=== PATIENT | female | born 1960 | race Caucasian/White ===

== ENCOUNTER 2017-01-09 15:36 | Emergency (ER) | payer OTHER ==
--- NOTE | 2017-01-09 16:06 | ED Physician Documentation ---
Female Urogenital Problems - HISTORIAN Historian: patient - HPI Chief Complaint: Female Urogenital Problems Onset: other (3 1/2 weeks ago) Severity: moderate Further Comments: yes (Started to have some lower back pain about 3 1/2 weeks, having some hot spells. No hematuria frequency, dysuria or urgency. Was seen and started Cipro but did not seem to help. Was seen again and started on Bactrim, has some improvement for 2 days. Now symptoms are about the same and is no better. Has a history of UTI and kidney stones. Liptotripty was done.) - Vaginal Bleeding Care: No Sexual History: active - ROS CONST: none, fever (??). denies: chills GI/: other (crohn's disease). denies: nausea, vomiting CVS/RESP: none - PAST HX Past History: none, other (history of kidney stones, Crohn's disease) Other History: kidney stone(s), bladder infection Surgeries/Procedures: hysterectomy, other (partial colectomy,) Allergies/Adverse Reactions: Allergies Allergy/AdvReac Type Severity Reaction Status Date / Time codeine Allergy Rash Verified 01/09/17 15:56 Home Medications: Ambulatory Orders Medication Instructions Recorded Hydrocodone/Acetaminophen [[place] 1 tab PO Q4H PRN 01/09/17 5-325 Tablet] Trazodone HCl [Trazodone HCl] 50 mg PO HS 01/09/17 - SOCIAL HX Smoking History: non-smoker Alcohol Use: none Drug Use: none - FAMILY HX Family History: kidney stones (father) - REVIEWED ASSESSMENTS Nursing Assessment Reviewed: Yes Vitals Reviewed: Yes ED Results Lab/Radiology - Radiology Radiology Impressions: Examination: CT Abdomen/pelvis History: Abdominal discomfort Comparison exams: None available Technique: CT Abdomen/pelvis without contrast protocol. Findings: Liver, spleen, adrenal glands, pancreas and gallbladder are without irregularity. No gallstone. Kidneys are symmetric in size. Calyceal calcifications bilaterally. Ureters to not appear to be dilated and the course of the abdomen and pelvis. Abdominal aorta with mild peripheral atherosclerotic disease. No abnormal dilation. Pelvic phleboliths. Bowel without contrast limiting evaluation. No evidence for acute mesenteric inflammation or free air. Stool throughout the large bowel limiting sensitivity. Sigmoid diverticula. No adjacent inflammatory changes. Surgical clips in the region of the appendix. Osseous structures demonstrate degenerative changes. Lung bases demonstrate mild scarring and atelectasis. Impression: Bilateral nephrolithiasis. No evidence for ureterolithiasis. No abnormal bowel dilation. Sigmoid diverticulosis. No evidence for acute diverticulitis. Electronically signed on Jan 09, 2017 5:08:05 PM CDT by: Rafael Quintana Female Urogenital Problems - EXAM General Appearance: alert, mild distress EENT: ENT inspection normal, pharynx normal Neck: nml inspection Respiratory: no resp. distress, breath sounds nml. No: wheezes, rales, rhonchi CVS: reg rate & rhythm, heart sounds normal, equal pulses Abdomen: soft, non-tender, no organomegaly, no distention, nml bowel sounds, tenderness (LLQ). No: guarding, rebound Back: CVA tenderness (left) Skin: color nml, no rash, warm,dry Extremities: non-tender, normal range of motion, no evidence of injury Neuro: oriented X3, mood/affect nml, cognition normal Discharge Clincal Impression: Uric acid crystalluria Referrals: Emily Olivas, PRN [Primary Care Provider] - 2 Days Additional Instructions: Drink a lot of fluids to keep your urine dilute, light yellow color. Take home medication. Watch for fever or chills. Make an appointment to see Sugar Olivas in about one week. Home Medications: Ambulatory Orders Hydrocodone/Acetaminophen [[place] 5-325 Tablet] 1 tab PO Q4H PRN 01/09/17 Trazodone HCl [Trazodone HCl] 50 mg PO HS 01/09/17 Condition: Stable Disposition: 01 HOME, SELF-CARE Decision to Admit: NO Date of Decison to Admit: 01/09/17 Decision Time: 18:02
[2017-01-09 16:07] VITALS: BP 122/88
[2017-01-09 16:20] LABS: APPEARANCE,URINE Cloudy (CLEAR); COLOR,URINE Yellow (YELLOW); OCCULT BLOOD,URINE Trace-intact (NEGATIVE)
[2017-01-09 16:25] LABS: AMORPHOUS SEDIMENT,UR FEW (NEGATIVE)
[2017-01-09 16:34] LABS: BASOPHILS % 0.4 (0.0-1.5); EOSINOPHILS % 1.6 % (0.0-6.8); MEAN CORPUSCULAR HEMOGLOBIN 30.4 pg (28.0-34.0); MEAN CORPUSCULAR VOLUME 88.2 fl (80.0-100.0); MONOCYTES % 4.8 % (0.0-11.0); NEUTROPHILS # 5.4 # k/uL (1.4-7.7)
[2017-01-09 16:47] LABS: eGFR (African) > 60; eGFR (Non-African) > 60
--- NOTE | 2017-01-09 17:11 | Diagnostic Imaging Report ---
[facility] [address] [facility] [address] [place], [place]. [address] Report Submission Date: Jan 09, 2017 5:08:05 PM CDT Patient Study Name: LALA MOLINA Date: Jan 09, 2017 4:26:36 PM CDT Modality Type: CT\SR Gender: F Description: CT ABD & PELVIS W/O CO : 56 Institution: [facility] Physician: FERNANDO FISHER Examination: CT Abdomen/pelvis History: Abdominal discomfort Comparison exams: None available Technique: CT Abdomen/pelvis without contrast protocol. Findings: Liver, spleen, adrenal glands, pancreas and gallbladder are without irregularity. No gallstone. Kidneys are symmetric in size. Calyceal calcifications bilaterally. Ureters to not appear to be dilated and the course of the abdomen and pelvis. Abdominal aorta with mild peripheral atherosclerotic disease. No abnormal dilation. Pelvic phleboliths. Bowel without contrast limiting evaluation. No evidence for acute mesenteric inflammation or free air. Stool throughout the large bowel limiting sensitivity. Sigmoid diverticula. No adjacent inflammatory changes. Surgical clips in the region of the appendix. Osseous structures demonstrate degenerative changes. Lung bases demonstrate mild scarring and atelectasis. Impression: Bilateral nephrolithiasis. No evidence for ureterolithiasis. No abnormal bowel dilation. Sigmoid diverticulosis. No evidence for acute diverticulitis. Electronically signed on Jan 09, 2017 5:08:05 PM CDT by: Rafael PRO
[2017-01-09] MEDS ORDERED: KETOROLAC TROMETHAMINE 30 MG/1ML VIAL ONE (17:48)
[2017-01-09] MEDS ORDERED: KETOROLAC TROMETHAMINE 30 MG/1ML VIAL IVP ONE (18:15)
== END 2017-01-09 18:24 | disposition home or self-care (01) ==
LOC: ED 15:36
DX: E79.0 Hyperuricemia without signs of inflammatory arthritis and tophaceous disease (principal); N20.0 Calculus of kidney
CPT/HCPCS: 74176; 80053; 81002; 84550; 85025; 87086; J1885; 96372; 99283; S1016

== ENCOUNTER 2017-05-14 17:18 | Emergency (ER) | payer OTHER ==
[2017-05-14] MEDS: 0.9 % SODIUM CHLORIDE 1,000 ML IV SCH (18:31)
[2017-05-14 18:52] LABS: MEAN CORPUSCULAR HEMOGLOBIN 30.6 pg (28.0-34.0); MEAN CORPUSCULAR VOLUME 90.2 fl (80.0-100.0)
[2017-05-14 19:01] LABS: eGFR (African) > 60; eGFR (Non-African) > 60
[2017-05-14 19:05] LABS: APPEARANCE,URINE CLOUDY (CLEAR); COLOR,URINE YELLOW (YELLOW); OCCULT BLOOD,URINE NEGATIVE (NEGATIVE)
--- NOTE | 2017-05-14 19:32 | ED Physician Documentation ---
Flank Pain - HISTORIAN Historian: patient, spouse - HPI Stated Complaint: UTI Chief Complaint: Flank Pain Additional Information: This is a 57 year old female seen today with urinary frequency and feeling like "I have a urinary tract infection". She had a right knee replacement one week ago, and has had an uncomplicated postoperative course. She was seen for a kidney stone recently by Dr. Etseves, and she says that she got transiently better , but today she began to have left flank pain. She has been diagnosed with urinary bladder dysfunction in the past. She has a history of self catheterization in the past, however is no longer doing this. She has not noted any rashes, and says that she has had the Zostavax shot. Onset: hours Duration: waxing, waning Timing: still present Context: denies: out of country travel, bad food Severity: moderate Quality: none, pain, aching Associated Symptoms: none, fever, chills Exacerbated by: nothing Relieved by: nothing - ROS CONST: no problems GI/: none CVS/RESP: none EYES/ENT: none MS/SKIN/LYMPH: none NEURO/PSYCH: none - SOCIAL HX Smoking History: greater than 1 pack/day Alcohol Use: rarely Drug Use: none - FAMILY HX Family History: no significant history - PAST HX Past History: none Ischemic Bowel Risk Factors: none Other History: none Surgeries/Procedures: other (Recent right total knee replacement) Medications: see nurse note - VITAL SIGNS Vital Signs: Vital Signs Temp Pulse Resp BP Pulse Ox 98.5 F 84 158/67 97 05/14/17 17:36 05/14/17 17:36 05/14/17 17:36 05/14/17 17:36 - REVIEWED ASSESSMENTS Nursing Assessment Reviewed: Yes Vitals Reviewed: Yes ED Results Lab/Radiology - Lab Results Lab Results: Lab Results 05/14/17 05/14/17 05/14/17 18:50 18:50 18:50 WBC 5.00 K/ul K/ul (4.00-12.00) RBC 3.30 M/ul L M/ul (3.90-5.20) Hgb 10.1 g/dL L g/dL (12.0-16.0) Hct 29.8 % L % (34.5-46.5) MCV 90.2 fl fl (80.0-100.0) MCH 30.6 pg pg (28.0-34.0) MCHC 34.0 g/dL g/dL (30.0-36.0) RDW 12.4 % % (11.3-14.3) Plt Count 331 K/mm3 K/mm3 (130-400) Sodium 137 mmol/L mmol/L (136-145) Potassium 3.3 mmol/L L mmol/L (3.5-5.1) Chloride 101 mmol/L mmol/L (98-107) Carbon Dioxide 31 mmol/L H mmol/L (22-30) BUN 20 mg/dL H mg/dL (7-17) Creatinine 0.60 mg/dL mg/dL (0.52-1.04) Estimated Creat Clear 96 Est GFR ( Amer) > 60 (60 - ) Est GFR (Non-Af Amer) > 60 (60 - ) Glucose 104 mg/dL mg/dL (74-106) Calcium 8.8 mg/dL mg/dL (8.4-10.2) Total Bilirubin 0.6 mg/dL mg/dL (0.2-1.3) AST 24 U/L U/L (15-46) ALT 28 U/L U/L (13-69) Alkaline Phosphatase 65 U/L U/L (38-126) Total Protein 6.9 g/dL g/dL (6.3-8.2) Albumin 3.4 g/dL L g/dL (3.5-5.0) Urine Color Yellow (YELLOW) Urine Appearance Cloudy H (CLEAR) Urine pH 6.0 (5.0 - 8.0) Ur Specific [place] >=1.030 H (1.010-1.030) Urine Protein 1+ mg/dL H mg/dL (NEGATIVE) Urine Ketones 1+ mg/dL H mg/dL (NEGATIVE) Urine Occult Blood Negative (NEGATIVE) Urine Nitrite Negative (NEGATIVE) Urine Bilirubin 1+ H (NEGATIVE) Urine Urobilinogen 1.0 Eu Eu (0.2-1.0) Ur Leukocyte Esterase Negative (NEGATIVE) Urine Glucose Negative mg/dL mg/dL (NEGATIVE) - Orders Orders: ED Orders Category Date Time Status CT ABD & PELVIS W/O CON Stat Exams 05/14/17 Taken CBC PLATELETS NO DIFF Routine Lab 05/14/17 18:50 Completed CMP Routine Lab 05/14/17 18:50 Completed UA MACRO DIP ONLY Routine Lab 05/14/17 18:50 Completed 0.9 % Sodium Chloride [Normal Saline] 1,000 ml Med 05/14/17 18:30 Ordered IV Q10H Abdominal Pain Physical Exam - Physical Exam General Appearance: mild distress EENT: eye inspection normal NECK: normal inspection RESPIRATORY: no resp distress CVS: reg rate & rhythm ABDOMEN: soft, tenderness (left flank, hemiabdomen and groin to light touch) PELVIC EXAM: other (deferred) MALE GENITAL: other RECTAL: deferred BACK: normal inspection, CVA tenderness (L) SKIN: warm/dry, normal color EXTREMITIES: non-tender NEURO: oriented X3, CN's nml as tested Vital Signs: Vital Signs Temp Pulse Resp BP Pulse Ox 98.5 F 84 158/67 97 05/14/17 17:36 05/14/17 17:36 05/14/17 17:36 05/14/17 17:36 Discharge Clincal Impression: Shingles Referrals: Emily Olivas PRN [Primary Care Provider] - 2 Days Condition: Good Disposition: 01 HOME, SELF-CARE Decision to Admit: NO Date of Decison to Admit: 05/14/17 Decision Time: 19:35
[2017-05-14] MEDS ORDERED: PHARMACY KEY 1 EACH EACH MC ONE (19:38)
[2017-05-14] MEDS ORDERED: ACYCLOVIR 200 MG CAPSULE PO SCH (20:00)
[2017-05-14 20:03] VITALS: BP 133/70
[2017-05-14] MEDS: 0.9 % SODIUM CHLORIDE 1,000 ML IV ONE (20:04)
--- NOTE | 2017-05-14 21:18 | Diagnostic Imaging Report ---
JOCELYN RAMIREZ [facility] [address] [facility] [address] [place], [place]. [address] Report Submission Date: May 14, 2017 7:03:21 PM HOT DIPPER Patient Study Name: LALA MOLINA Date: May 14, 2017 6:43:37 PM HOT DIPPER Modality Type: CT\SR Gender: F Description: CT ABD & PELVIS W/O CO : 56 Institution: [facility] Physician: JOCELYN RAMIREZ CT of the abdomen and pelvis without contrast CLINICAL HISTORY: Left flank pain. History of kidney stones. TECHNIQUE: CT examination of the abdomen and pelvis is performed without oral or intravenous administration of contrast. Sagittal and coronal reconstructions are performed by the technologist. Comparison is made to prior study dated . FINDINGS: Visualized lung bases are clear. The liver and spleen demonstrate normal attenuation without focal defect. Gallbladder is normally distended. There is no pancreatic or adrenal abnormality. There are bilateral punctate intrarenal calculi. There is no hydronephrosis or perinephric stranding. There are postoperative changes consistent with previous partial right colectomy. Air is evident in the bladder presumed from recent instrumentation. There is no free fluid in the pelvis or abdomen. Uterus is surgically absent. IMPRESSION: Bilateral intrarenal calculi. No evidence of ureteral calculus or hydronephrosis. Postoperative changes. Vascular calcification. Air in the bladder presumed from recent instrumentation. Electronically signed on May 14, 2017 7:03:21 PM HOT DIPPER by: Parth PRO
== END 2017-05-14 19:49 | disposition home or self-care (01) ==
LOC: ED 17:18
DX: B02.9 Zoster without complications (principal); R10.9 Unspecified abdominal pain
CPT/HCPCS: 74176; 80053; 81002; 85027; 96360; 99283; J7030; S1016